=== PATIENT | male | born 1970 | race American Indian/Alaskan Native ===

== ENCOUNTER 2020-12-17 13:11 | Outpatient (CLI) | payer OTHER | END 2020-12-17 13:12 | disposition home or self-care (01) | LOC: SLR 13:11 | PROVIDERS: ATTEND Family Medicine | DX: G47.33 Obstructive sleep apnea (adult) (pediatric) (principal); I10 Essential (primary) hypertension; E66.9 Obesity, unspecified; R40.0 Somnolence | CPT/HCPCS: 95811 ==